=== PATIENT | male | born 1980 | race Caucasian/White ===

== ENCOUNTER → 2023-04-30 10:30 | Outpatient (CLI) | payer BC, SELFPAY ==
--- NOTE | ~2023-04-30 | MR_ITS ---
EXAMINATION: MR knee LT wo con DATE: 04/30/2023 11:23 INDICATION: Chronic medial left knee pain. Tear of medial meniscus. TECHNIQUE: Magnetic resonance imaging (MRI) of the left knee was performed without intravenous contra st. Sequences included axial PD-weighted FS FSE, coronal PD-weighted FSE and PD-weighted FS FSE, sagi ttal PD-weighted FSE, and sagittal T2-weighted FS FSE. COMPARISON: Left knee radiographs 04/18/2023 FINDINGS: Medial compartment: There is an undersurface horizontal tear of body of medial meniscus with 16 x 12 mm multiloculated pa ralabral cyst. Medial compartment cartilage is normal. Lateral compartment: Lateral meniscus is normal. Lateral compartment cartilage is normal. Patellofemoral compartment: There is cartilage surface irregularity of distal patella. Trochlear cartilage is normal. Ligaments and tendons: The anterior and posterior cruciate ligaments are normal. Medial collateral ligament and lateral ching ateral ligament complex are normal. There is mild patellar tendinopathy. Fluid: There is no knee joint effusion. IMPRESSION: 1. Tear of medial meniscus with paralabral cyst. 2. Mild patellar chondrosis. Reviewed, dictated and finalized at location A. [facility] [employer]
== END ==
PROVIDERS: PCP Orthopaedic Surgery; Visit Provider Orthopaedic Surgery
DX: S83.242A Other tear of medial meniscus, current injury, left knee, initial encounter (principal); M67.462 Ganglion, left knee; M22.42 Chondromalacia patellae, left knee; X58.XXXA Exposure to other specified factors, initial encounter
CPT/HCPCS: 73721

== ENCOUNTER 2023-06-07 01:44 | Day surgery (SDC) | payer BC, SELFPAY ==
[2023-05-31 10:40] VITALS: BMI 36.6
--- NOTE | 2023-05-31 10:44 | PC.NURSE ---
Report to the Outpatient Waiting Room, entrance under the green pavilion located off [facility], at time 0830 on date 06/07/23. Planned Procedure Time: 1030. Time changes happen often and if your time is changed the preop area will call you the afternoon before. - You and your visitor will be asked to self-screen and do not enter if you have any COVID symptoms. - A mask is optional within the hospital at this time. Patients may have clear liquids (water, carbonated beverages, clear teas, apple juice) until 3 hours prior to surgery with a maximum of 20 ounces. - No food from midnight until time of surgery Take the following medications with a SIP of water the morning of surgery: N/A DO NOT STOP ANY OF YOUR OTHER PRESCRIPTION MEDICATIONS PRIOR TO SURGERY ?EXCEPT THE FOLLOWING Medications to discontinue per physician: N/A Date to take last dose: N/A Please no make-up, nail liberian, hairspray, perfume, deodorant, or body powder the day of surgery. No jewelry (including any body piercings) or valuables the day of surgery, leave them at home. Please take a shower or bath the night before, or the morning of, surgery with an antibacterial soap. Wear comfortable, loose fitting clothing. - Jewelry must be removed prior to entering the operating room. Rings and piercings that are not removed may be cut off. - The hospital will not accept responsibility for valuables. - Please leave all valuables, including medications, at home the day of surgery. If you are going home after surgery, a licensed route delivery service driver must drive you home. - NO public transportation without another adult if you receive anesthesia. - We recommend that an adult stay with you for 24 hours following discharge. - We also recommend that you do not drive, make important decision, drink alcoholic beverages, or take any drugs that were not prescribed by your health care provider for at least 24 hours after your discharge time. Follow any additional instructions given to you from your surgeon. If you or anyone in your household have experienced Covid symptoms in the past week, please notify your surgeon or the nurse liaison at the phone number below for possible testing. Telephone instructions given to PT - JAYLON PAULSON and asked if any additional questions and then verbalized understanding. Patient advised to call surgeon office or pre surgery nurse liaison [phone] if any additional questions.
[2023-06-07] VITALS (7 sets, daily range): BP systolic 117–144; BP diastolic 82–95; PULSE 62–83; RESP 10–20; TEMP 36.8; O2SAT 94–99
--- NOTE | 2023-06-07 07:17 | WPDHPUPDATE1 ---
History and Physical Update Update Date/Time: 06/07/23 07:17 History and Physical has been reviewed, including an updated exam of the patient. There are NO changes in the patient's condition. Risks, benefits, and alternatives have been discussed and questions answered. Patient agrees to proceed with procedure.
[2023-06-07] MEDS: ACETAMINOPHEN 500 MG TABLET 1000 MG PO (09:05)
[2023-06-07] MEDS: CELECOXIB 200 MG CAPSULE PO (09:05)
[2023-06-07] MEDS: LACTATED RINGERS 1,000 ML 30 ML IV CONT ×2 (09:05→12:43)
--- NOTE | 2023-06-07 09:56 | P.PNAN_ITS ---
Anes - Initial Pre Proc Eval Procedure: Operation Date: 06/07/23 10:30 Proposed Procedures p Left Knee Arthroscopy, Proceed As Indicated - Nghia Martinez MD Date/Time: 06/07/23 09:56 Surgeon: Nghia Martinez MD Pre Op Diagnosis: left medial meniscus tear with paralabral cyst Patient Data Age: 42 Gender: M Height: 1.83 m Weight: 125.8 kg Last Vital Signs Temp 36.8 C 06/07/23 09:05 Pulse 65 06/07/23 09:05 Resp 14 06/07/23 09:05 BP 144/92 H 06/07/23 09:05 Pulse Ox 98 06/07/23 09:05 O2 Del Method Room Air 06/07/23 09:05 Allergies Allergy/AdvReac Type Severity Reaction Status Date / Time No Known Allergies Allergy Verified 06/07/23 09:31 Home Medications Medication Instructions Recorded Confirmed Type chlorhexidine gluconate 4 % 1 applic topical ONCE #237 mL 05/31/23 05/31/23 Rx topical liquid (Hibiclens) Patient hx anesthesia problems: none Family hx anesthesia problems: none Results Review: All pre-operative results and documents have been reviewed as part of the pre- operative evaluation. 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 Informed Consent: The patient's anesthetic plan and its attendant risks and benefits were discussed with the patient/family/POA. Questions were solicited and answers provided to the satisfaction of the patient/family/POA.
[2023-06-07] MEDS: ceFAZolin 3 GM/D5W 100 ML 100 ML IVPB (11:03)
[2023-06-07] MEDS: BUPivacaine HCL 0.5% 10 ML AMP 30 ML INFILTRATE (11:12)
--- NOTE | 2023-06-07 11:55 | W.PM.PROC2 ---
Procedure Note - Detailed Date of Procedure 06/07/23 Pre-op Diagnosis left medial meniscus tear with paralabral cyst Post-op Diagnosis Same Procedure Performed LEFT KNEE SCOPE Surgeon Nghia Martinez MD Anesthesia General Description of Procedure PATIENT WAS TAKEN TO THE OR. LEFT LEG WAS PREPPED AND DRAPED STERILE. TROCARS WERE PLACED IN THE USUAL FASHION. CAMERA WAS INTRODUCED. THERE WAS CHONDROMALACIA TO THE PATELLA FEMORAL JOINT. THERE WAS A LOT OF SYNOVITIS IN ALL COMPARTMENTS. THE MEDIAL COMPARTMENT SHOWED CHONDROMALACIA TO THE MEDIAL FEMORAL CONDYLE. A SHAVER WAS USED TO PREFORM A CHONDROPLASTY. THERE WAS A COMPLEX MEDIAL MENISCUS TEAR. THE TEAR WAS RESECTED WITH A BITER AND A SHAVER DOWN TO A SMOOTH BASE. THE ACL WAS INTACT. THE LATERAL MENISCUS WAS NOT TORN. THE LATERAL COMPARTMENT HAD MINIMAL CHONDROMALACIA. CHONDROPLASTY WAS PREFORMED. A SYNOVECTOMY WAS PREFORMED WELL. THE PATELLO FEMORAL JOINT UNDERWENT CHONDROPLASTY. THERE WAS GRADE 2 AND GRADE 3 CHONDROMALACIA IN OF THE PATELLA. THERE WAS A LARGE PLICA IN THE SUPERIOR MEDIAL COMPARTMENT. SYNOVECTOMY WAS PREFORMED IN THE SUPERIOR MEDIAL COMPARTMENT. THE WOUNDS WERE APPROXIMATED WITH 4.0 NYLON. STERILE DRESSING WAS APPLIED. PATIENT WAS EXTUBATED. Estimated Blood Loss 5 Complications No immediate complications Condition Stable Disposition PACU
[2023-06-07] MEDS: oxyCODONE HCL (*CRX) 5 MG TAB IR PO (12:56)
== END 2023-06-07 13:29 | disposition home or self-care (01) ==
PROVIDERS: Visit Provider Orthopaedic Surgery
PROC: (CPT 29870; principal; 2023-06-07 10:30)
DX: M23.332 Other meniscus derangements, other medial meniscus, left knee (principal); M65.862 Other synovitis and tenosynovitis, left lower leg; M25.862 Other specified joint disorders, left knee; M22.42 Chondromalacia patellae, left knee; M67.52 Plica syndrome, left knee; E66.9 Obesity, unspecified; Z68.37 Body mass index [BMI] 37.0-37.9, adult
CPT/HCPCS: 29881; 29876; A9270; J0690; J1100; J2250; J2405; J3010; J7120